=== PATIENT | male | born 1995 | race Caucasian/White ===

== ENCOUNTER 2018-08-21 14:24 | Inpatient (IN) | payer BC ==
[2018-08-21 15:01] LABS: Hemoglobin 14.9 g/dL (14.0-18.0); Mean Corpuscular HGB CONC 32.3 g/dL (32.0-36.0); Mean Corpuscular Hemoglobin 30.4 pg (25.0-35.0); Mean Corpuscular Volume 94.2 fL (78.0-98.0); Mean Platelet Volume 8.3 fL (7.4-10.4); Platelet Count 356 thou/uL (130-400); RBC Distribution Width 11.6 % (11.5-14.5); Red Blood Cell (RBC) Count 4.89 mill/uL (4.00-5.20); White Blood Cell (WBC) Count 37.9 thou/uL (4.8-10.8)
[2018-08-21 15:20] LABS: Band 18 % (5-11); Lymphocytes 9 % (28-48); MDiff Complete? YES; Metamyelocyte 2 % (0-0); Monocytes 7 % (0-4); Myelocyte 1 % (0-0); Neutrophil 62 % (31-61); Platelet Morphology Comment Appears Adequate; RBC Morphology Normal
[2018-08-21 15:23] LABS: ALT (SGPT) 70 U/L (8-55); AST (SGOT) 65 U/L (5-34); Albumin 4.5 g/dL (3.5-5.0); Alkaline Phosphatase 128 U/L (40-150); BUN (Urea Nitrogen) 32 mg/dL (8.9-20.6); Bilirubin, Total 0.9 mg/dL (0.2-1.2); Calc. Creatinine Clearance 0 mL/min (70-130); Calcium 8.8 mg/dL (7.8-10.44); Chloride 97 mmol/L (98-107); Estimated GFR-MDRD 50; Globulin 2.7 g/dL (2.4-3.5); Protein, Total 7.2 g/dL (6.0-8.3); Sodium 130 mmol/L (136-145)
[2018-08-21 15:28] LABS: Bilirubin Negative (Negative); Blood, Urine 2+ (Negative); Clarity Clear (Clear); Glucose, Urine (Dipstick) Greater than 1000 mg/dL (Negative); Leukocyte Negative Leu/uL (Negative); Nitrite Negative (Negative); Protein, Urine (Dipstick) Negative (Neg-Trace); Squamous Epithelial 0-3 HPF (0-3); Urobilinogen Normal mg/dL (Less than 2); WBC/HPF 0-3 HPF (0-3)
[2018-08-21 15:29] LABS: Carbon Dioxide Less than 8 mmol/L (22-29); Glucose 724 mg/dL (70-105); Potassium 7.2 mmol/L (3.5-5.1)
[2018-08-21 15:29] LABS: Base Excess-Venous -21.9 mmol/L (-2.0 to 3.0); CO2 Tension (PvCO2) 24.9 mmHg (40.0-50.0); Calcium, Ionized 1.04 mmol/L (See Comments:); Chloride 104 mmol/L (98-107); Hemoglobin - Calc 15.2 g/dL (14.0-18.0); Potassium 7.1 mmol/L (3.5-5.1); Sodium 127 mmol/L (138-145); T. Carbon Dioxide 7.8 mmol/L (22.0-28.0); vO2 Saturation-calc 80.6 % (60.0-85.0)
[2018-08-21 15:29] LABS: RBC/HPF 0-3 HPF (0-3)
[2018-08-21 15:40] LABS: Bacteria/HPF None Seen HPF (None Seen)
[2018-08-21] MEDS ORDERED: HUMULIN R 100 UNITS in Sodium Chloride 0.9% 100 ML IVPB SCH ×2 (15:45→17:30)
[2018-08-21] MEDS ORDERED: Insulin Regular 300 UNITS/3 ML VIAL ONE (16:31)
[2018-08-21] MEDS ORDERED: Dextrose 5 %-0.45 % NaCl 1,000 ML IV PRN (17:17)
[2018-08-21] MEDS ORDERED: CCU Electrolyte Replacement 1 EACH IVPB ONE (17:17)
[2018-08-21] MEDS ORDERED: NS 0.9% w/ 20 MEQ KCL 1,000 ML IV PRN ×2 (17:17)
[2018-08-21] MEDS ORDERED: Sodium Chloride 0.9% 1,000 ML IV PRN ×4 (17:17)
[2018-08-21] MEDS ORDERED: Calcium Gluconate 4.6 MEQ in Sodium Chloride 0.9% 100 ML IVPB SCH (17:30)
[2018-08-21] MEDS ORDERED: Potassium Phosphate 12 MMOL in Sodium Chloride 0.9% 250 ML 250 ML IV PRN (17:33)
[2018-08-21] MEDS ORDERED: Potassium Chloride 40 MEQ in Premix Bag 1 BAG IVPB PRN (17:33)
[2018-08-21] MEDS ORDERED: CCU ELECTROLYTE REPLACEMENT PROTOCOL FS PRN (17:33)
[2018-08-21] MEDS ORDERED: Potassium Phosphate 9 MMOL in Sodium Chloride 0.9% 100 ML IVPB PRN (17:33)
[2018-08-21] MEDS ORDERED: PHOS-NAK 1 PKT PACK PO PRN ×2 (17:33)
[2018-08-21] MEDS ORDERED: Magnesium Oxide 400 MG TAB PO PRN ×2 (17:33)
[2018-08-21] MEDS ORDERED: Magnesium 2 GM/50 ML 2 GM in Premix Bag 1 BAG IVPB PRN (17:33)
[2018-08-21] MEDS ORDERED: Potassium Chloride 20 MEQ TAB PO PRN (17:33)
[2018-08-21] MEDS ORDERED: Potassium Chloride 40 MEQ in Sodium Chloride 0.9% 250 ML 250 ML IVPB PRN (17:33)
[2018-08-21] MEDS ORDERED: Potassium Phosphate 15 MMOL in Sodium Chloride 0.9% 250 ML 250 ML IV PRN (17:33)
[2018-08-21 18:38] VITALS: BMI 21.9
[2018-08-21] MEDS: Piperacillin/Tazobactam 3.375 GM in Sodium Chloride 0.9% 100 ML IVPB SCH (19:06)
[2018-08-21 20:01] LABS: Anion Gap 21 mmol/L (10-20); BUN (Urea Nitrogen) 27 mg/dL (8.9-20.6); Calc. Creatinine Clearance 87 mL/min (70-130); Calcium 8.6 mg/dL (7.8-10.44); Carbon Dioxide 11 mmol/L (22-29); Chloride 106 mmol/L (98-107); Estimated GFR-MDRD 68; Glucose 311 mg/dL (70-105); Phosphorus 2.7 mg/dL (2.3-4.7); Potassium 4.4 mmol/L (3.5-5.1); Sodium 134 mmol/L (136-145)
[2018-08-21] MEDS: D5 1/2 NS w/20 mEq KCL 1,000 ML IV PRN (21:09)
[2018-08-21 22:13] LABS: Anion Gap 15 mmol/L (10-20); BUN (Urea Nitrogen) 22 mg/dL (8.9-20.6); Calc. Creatinine Clearance 87 mL/min (70-130); Calcium 8.2 mg/dL (7.8-10.44); Carbon Dioxide 14 mmol/L (22-29); Chloride 109 mmol/L (98-107); Estimated GFR-MDRD 68; Glucose 229 mg/dL (70-105); Potassium 4.3 mmol/L (3.5-5.1); Sodium 134 mmol/L (136-145)
[2018-08-22] MEDS: Piperacillin/Tazobactam 3.375 GM in Sodium Chloride 0.9% 100 ML IVPB SCH ×5 (00:11→23:59)
--- NOTE | 2018-08-22 00:24 | HP ---
HISTORY OF PRESENT ILLNESS: The patient was seen by Pam Baez, nurse practitioner. I personally examined the patient, obtained a history and physical and developed a plan. The patient is a 23-year-old male who has a 13-year history of type 1 diabetes, has one prior episode of DKA about 13 years ago. The patient reports that he was in his usual state of health yesterday when he was working hard out in the heat, felt generally poor, but had no specific signs or symptoms of infection. States he started feeling some general nausea late in the afternoon and then woke up at 2 o'clock in the morning with significant nausea and vomiting, and when that persisted, he presented to [facility] ER where lab workup indicated the patient was severely acidotic with DKA. He was given fluids, bicarb, insulin and transferred to this facility. The patient has received additional insulin, started on insulin drip as well as aggressive IV hydration. He is currently able to take a few sips and his nausea is starting to improve and he states that he feels generally better than he did when he initially presented. PHYSICAL EXAMINATION: VITAL SIGNS: Latest vital signs; BP 120/50, pulse 113, respirations 18, temperature is 98.3, O2 saturation was 100% on room air. GENERAL: He is awake, alert, pleasant, cooperative, does not appear significantly distressed at all. HEENT: PERRL. No OP lesions. NECK: Supple and symmetric. HEART: Regular rate and rhythm. LUNGS: Clear. ABDOMEN: Soft, nontender with normal bowel sounds. EXTREMITIES: Have no edema. LABORATORY DATA: White count 37.9, platelets 356. PH 7.059 on VBG, pCO2 is 25, bicarb 7. Sodium 127, potassium 7.1. Latest glucose is greater than 550. Slight elevation of liver enzymes. Urinalysis shows significant ketones. Beta hydroxybutyrate 9.23. IMPRESSION AND PLAN: 1. Diabetic ketoacidosis. The patient is admitted to the [facility]. He was given 0.1 units/kg IV insulin and started on drip, will be on the diabetic ketoacidosis protocol with frequent labs. 2. Severe hyperkalemia. The patient's outside EKG did show some evidence of potential peaked T-waves. He is getting aggressively hydrated. He has had significant amount of insulin, but we will go ahead and give an amp of calcium and stabilize the myocardium and recheck these values soon. 3. Leukocytosis with 18% bands. The patient does not have any evidence of a specific infection; however, we will go and cover with some Zosyn and check blood cultures until we can ensure there is no underlying infection driving this diabetic ketoacidosis. Job ID: [id number]
[2018-08-22] MEDS: D5 1/2 NS w/20 mEq KCL 1,000 ML IV PRN ×2 (01:10→05:17)
[2018-08-22 01:50] LABS: #Basophils 0.1 thou/uL (0.0-0.2); #Eosinphils 0.1 thou/uL (0.0-0.7); #Lymphocytes 2.4 thou/uL (1.20-3.40); %Basophils 0.2 % (0.0-1.0); %Eosinophils 0.2 % (0.0-10.0); %Monocytes 7.6 % (0.0-10.0); Hemoglobin 12.4 g/dL (14.0-18.0); Mean Corpuscular HGB CONC 34.2 g/dL (32.0-36.0); Mean Corpuscular Hemoglobin 31.1 pg (27.0-31.0); Mean Corpuscular Volume 91.1 fL (78.0-98.0); Mean Platelet Volume 7.5 fL (7.4-10.4); Platelet Count 251 thou/uL (130-400); RBC Distribution Width 11.4 % (11.5-14.5); Red Blood Cell (RBC) Count 3.97 mill/uL (4.70-6.10); White Blood Cell (WBC) Count 26.5 thou/uL (4.8-10.8)
[2018-08-22 02:06] LABS: Anion Gap 11 mmol/L (10-20); BUN (Urea Nitrogen) 18 mg/dL (8.9-20.6); Calc. Creatinine Clearance 92 mL/min (70-130); Calcium 8.6 mg/dL (7.8-10.44); Carbon Dioxide 15 mmol/L (22-29); Chloride 111 mmol/L (98-107); Estimated GFR-MDRD 74; Glucose 227 mg/dL (70-105); Sodium 133 mmol/L (136-145)
[2018-08-22 06:23] LABS: Anion Gap 9 mmol/L (10-20); BUN (Urea Nitrogen) 15 mg/dL (8.9-20.6); Calc. Creatinine Clearance 108 mL/min (70-130); Calcium 8.5 mg/dL (7.8-10.44); Carbon Dioxide 20 mmol/L (22-29); Chloride 111 mmol/L (98-107); Estimated GFR-MDRD 88; Glucose 107 mg/dL (70-105); Potassium 4.2 mmol/L (3.5-5.1); Sodium 136 mmol/L (136-145)
[2018-08-22] MEDS ORDERED: Insulin Regular 300 UNITS/3 ML VIAL SC PRN (09:15)
[2018-08-22] MEDS ORDERED: Dextrose 50% Abboject 50 ML SYRINGE SLOW IVP PRN (09:15)
[2018-08-22] MEDS ORDERED: Insulin Glargine 15 UNITS in Pre-Filled Syringe 1 EACH SC SCH ×2 (09:15→21:00)
[2018-08-22] MEDS ORDERED: Dextrose 5% in Water 1,000 ML IV PRN (09:15)
[2018-08-22] MEDS ORDERED: DC Electrolyte Protocol FS ONE (09:30)
[2018-08-22 09:46] LABS: CK (CPK) 1826 U/L (30-200); Magnesium 2.1 mg/dL (1.6-2.6); Phosphorus 2.6 mg/dL (2.3-4.7)
[2018-08-22] MEDS: Sodium Chloride 0.45% 1,000 ML IV SCH ×2 (10:57→17:56)
[2018-08-22] MEDS ORDERED: Diabetic Tussin 200 MG/10 ML UDCUP PO PRN (13:16)
[2018-08-22] MEDS ORDERED: Cepastat Lozenges 1 LOZ PO PRN (13:16)
[2018-08-22] MEDS: Insulin Regular 300 UNITS/3 ML VIAL SC PRN ×2 (14:06→17:42)
[2018-08-22] MEDS ORDERED: Azithromycin 250 MG TAB PO SCH (20:15)
--- NOTE | 2018-08-22 20:17 | PDOC.PN ---
- Subjective Encounter Start Date: 08/22/18 Encounter Start Time: 18:30 Patient seen and examined for DKA. Sore throat +. No CP/SOB. No new complaints. No overnight events - Objective MAR Reviewed: Yes Vital Signs & Weight: Vital Signs (12 hours) Temp 08/22/18 15:03 99.6 F 08/22/18 10:36 98.6 F Weight Weight 152 lb 9.6 oz Most Recent Monitor Data Heart Rate from ECG 84 NIBP 98/49 NIBP BP-Mean 65 Respiration from ECG 23 SpO2 100 I&O: 08/21/18 08/22/18 08/23/18 06:59 06:59 06:59 Intake Total 2959 3116 Output Total 1850 1400 Balance 1109 1716 Result Diagrams: 08/22/18 01:39 08/22/18 05:52 Additional Labs: Accuchecks 08/22/18 08/22/18 08/22/18 16:12 13:58 13:19 POC Glucose 255 H 283 H 256 H 08/22/18 08/22/18 08/22/18 12:08 11:22 09:57 POC Glucose 237 H 235 H 221 H 08/22/18 08/22/18 08/22/18 09:01 08:06 07:20 POC Glucose 185 H 141 H 121 H 08/22/18 08/22/18 08/22/18 06:00 05:10 04:08 POC Glucose 93 120 H 123 H 08/22/18 08/22/18 08/22/18 03:06 02:08 01:08 POC Glucose 160 H 203 H 217 H 08/22/18 08/21/18 08/21/18 00:13 23:09 22:09 POC Glucose 218 H 212 H 224 H 08/21/18 08/21/18 21:10 15:21 POC Glucose 190 H Greater than 550 H* EKG Reviewed by me: Yes (Tele SR) Phys Exam - Physical Examination Constitutional: NAD HEENT: PERRLA, sclera anicteric erythematous tonsils with exudates Respiratory: no wheezing, no rhonchi Cardiovascular: RRR, no rub Gastrointestinal: soft, non-tender, no distention, positive bowel sounds Musculoskeletal: no edema, pulses present Neurological: moves all 4 limbs Dx/Plan - Plan DVT proph w/SCDs IMPRESSION: DKA Sepsis probably due to acute tonsillopharyngitis Metabolic acidosis Hyperkalemia Rhabdomyolysis DM type 1 PLAN: DC Insulin drip Start 1/2 NS @125 Start Lantus to 20 units BID with moderate sliding scale Cont IV Zosyn Add Azithromycin Consult ID to r/o tonsillar abscess AM labs Transfer to medical Review of Systems - Review of Systems ENT: Throat Pain Respiratory: negative: Cough, Dry, Shortness of Breath, Hemoptysis, SOB with Excertion, Pleuritic Pain, Sputum, Wheezing Cardiovascular: negative: chest pain, palpitations, orthopnea, paroxysmal nocturnal dyspnea, edema, light headedness, other Gastrointestinal: negative: Nausea, Vomiting, Abdominal Pain, Diarrhea, Constipation, Melena, Hematochezia, Other - Medications/Allergies Allergies/Adverse Reactions: Allergies Allergy/AdvReac Type Severity Reaction Status Date / Time No Known Allergies Allergy Unverified 08/21/18 15:25 Medications: Current Medications Azithromycin (Zithromax) 500 mg PO ONE SHANNON Stop: 08/22/18 20:16 Azithromycin (Zithromax) 250 mg PO DAILY [facility] Stop: 08/26/18 09:01 Dextrose/Water (Dextrose 50%) 25 gm SLOW IVP PRN PRN PRN Reason: Hypoglycemia Glucagon (Glucagon) 1 mg IM PRN PRN PRN Reason: Hypoglycemia Guaifenesin (Robitussin Sf) 200 mg PO Q4H PRN PRN Reason: Cough Last Admin: 08/22/18 14:05 Dose: 200 mg Piperacillin Sod/Tazobactam (Sod 3.375 gm/ Sodium Chloride) 100 mls @ 200 mls/ hr IVPB Q6HR SHANNON Last Admin: 08/22/18 17:49 Dose: 100 mls Sodium Chloride (1/2 Normal Saline) 1,000 mls @ 125 mls/hr IV .Q8H SHANNON Last Admin: 08/22/18 17:56 Dose: 1,000 mls Dextrose/Water (D5w) 1,000 mls @ 0 mls/hr IV .Q0M PRN PRN Reason: Hypoglycemia Insulin Glargine 20 units/ (Miscellaneous Medication) 0.2 mls @ 0 mls/hr SC BID [facility] Insulin Human Regular (Humulin R) 0 units SC .MODERATE SLIDING SC PRN PRN Reason: Moderate Correctional Scale Last Admin: 08/22/18 17:42 Dose: 6 unit Insulin Human Regular (Humulin R) 0 units SC .BEDTIME SLIDING SC PRN PRN Reason: Bedtime Correctional Scale Throat Lozenges (Cepastat Lozenges) 1 yg PO Q2H PRN PRN Reason: Sore Throat Last Admin: 08/22/18 14:05 Dose: 1 yg
[2018-08-22] MEDS: Insulin Glargine 20 UNITS in Pre-Filled Syringe 1 EACH SC SCH (20:28)
[2018-08-23] MEDS: Sodium Chloride 0.45% 1,000 ML IV SCH (02:37)
[2018-08-23 04:57] LABS: #Eosinphils 0.2 thou/uL (0.0-0.7); #Lymphocytes 3.4 thou/uL (1.20-3.40); #Monocytes 0.9 thou/uL (0.11-0.59); #Neutrophils 8.3 thou/uL (1.40-6.50); %Basophils 0.4 % (0.0-1.0); %Eosinophils 1.7 % (0.0-10.0); %Lymphocytes 26.4 % (21.0-51.0); %Monocytes 6.7 % (0.0-10.0); %Neutrophils 64.8 % (42.0-75.0); Hemoglobin 13.1 g/dL (14.0-18.0); Mean Corpuscular HGB CONC 33.6 g/dL (32.0-36.0); Mean Corpuscular Hemoglobin 31.1 pg (27.0-31.0); Mean Corpuscular Volume 92.7 fL (78.0-98.0); Platelet Count 193 thou/uL (130-400); RBC Distribution Width 11.5 % (11.5-14.5); Red Blood Cell (RBC) Count 4.22 mill/uL (4.70-6.10); White Blood Cell (WBC) Count 12.8 thou/uL (4.8-10.8)
[2018-08-23 05:20] LABS: ALT (SGPT) 48 U/L (8-55); AST (SGOT) 50 U/L (5-34); Albumin 3.2 g/dL (3.5-5.0); Alkaline Phosphatase 77 U/L (40-150); Anion Gap 13 mmol/L (10-20); BUN (Urea Nitrogen) 7 mg/dL (8.9-20.6); Bilirubin, Total 0.9 mg/dL (0.2-1.2); CK (CPK) 1175 U/L (30-200); Calc. Creatinine Clearance 135 mL/min (70-130); Calcium 8.5 mg/dL (7.8-10.44); Carbon Dioxide 19 mmol/L (22-29); Chloride 111 mmol/L (98-107); Estimated GFR-MDRD Greater than 90; Globulin 2.3 g/dL (2.4-3.5); Glucose 75 mg/dL (70-105); Magnesium 1.8 mg/dL (1.6-2.6); Phosphorus 3.6 mg/dL (2.3-4.7); Potassium 3.6 mmol/L (3.5-5.1); Protein, Total 5.5 g/dL (6.0-8.3); Sodium 139 mmol/L (136-145)
[2018-08-23] MEDS: Piperacillin/Tazobactam 3.375 GM in Sodium Chloride 0.9% 100 ML IVPB SCH (05:55)
[2018-08-23] MEDS ORDERED: Azithromycin 250 MG TAB PO SCH (09:00)
[2018-08-23] MEDS: Insulin Glargine 20 UNITS in Pre-Filled Syringe 1 EACH SC SCH (09:16)
[2018-08-23 09:49] VITALS: TEMP 98.1
[2018-08-23] MEDS ORDERED: Insulin Regular 300 UNITS/3 ML VIAL SC PRN (11:17)
[2018-08-23 11:42] VITALS: BP 116/63
--- NOTE | 2018-08-23 15:13 | PQF ---
CLINICAL DOCUMENTATION IMPROVEMENT CLARIFICATION FORM: ICD-10 Updated PLEASE DO AN ADDENDUM TO THE PROGRESS NOTE WITH ANY DOCUMENTATION UPDATES OR ADDITIONS AND CARRY THROUGH TO DC SUMMARY. THANK YOU. DATE: 08/23/18 ATTN: DR. BLAS Please exercise your independent, professional judgment in responding to the clarification form. Clinical indicators are provided on the bottom of this form for your review Diagnosis: "SEPSIS" Present on Admission (POA): [ x ] Yes [ ] No [ ] Unable to determine Coding guidelines require hospitals to identify whether a diagnosis was present on admission (POA) or not. To accurately assign the appropriate POA indicator, this information must be clearly documented within the medical record. CLINICAL INDICATORS - SIGNS / SYMPTOMS / LABS PROGRESS NOTE 08/22: "SEPSIS PROBABLY DUE TO ACUTE TONSILLOPHARYNGITIS" WBC 37.9 BANDS 18 PULSE 121 RISKS: TONSILLOPHARYNGITIS DKA TREATMENT: IV FLUIDS (ER-PRESENT) IV ZOSYN (08/21-PRESENT) ZITHROMAX (08/23-08/26) BLOOD URINE AND THROAT CULTURES (This form is maintained as a part of the permanent medical record) 2014 [employer] All Rights Reserved [email or web address] [email or web address] Office: [phone] [facility]
--- NOTE | 2018-08-23 17:43 | CON ---
DATE OF CONSULTATION: REASON FOR CONSULTATION: DKA with leukocytosis and sore throat. HISTORY OF PRESENT ILLNESS: A 23-year-old, who has a type 1 diabetes mellitus, which was diagnosed when he presented with DKA a few years ago. He is otherwise healthy other than the type 1 diabetes. Takes his insulin 6 to 8 times a day. His dad helps him pay for the medication. He works at [email or web address]. On the day of admission, he had worked in his car and also in his dads yard and had start becoming ill with general malaise and then developed full-blown DKA with nausea and vomiting. He did not have a headache. No visual symptoms, sore throat, odynophagia, or dysphagia. No cough. No chest pain. No abdominal pain. No genitourinary symptoms. No joint symptoms. He was presented to the [facility] ER and was transferred to the hospital and admitted. He was treated for DKA with rapid improvement. He was given broad-spectrum antimicrobial coverage, but no focal infection was identified, except for the symptom of severe odynophagia or posterior pharyngeal pain. Currently that has resolved completely and his 10-point review of systems is negative. PAST MEDICAL HISTORY: Type 1 diabetes with prior DKA and he takes insulin multiple times a day. Used to have a pump, but stopped using it. PAST SURGICAL HISTORY: No surgical history. SOCIAL HISTORY: He apparently smokes intermittently, trying to quit. No alcoholic beverage use. No other drug use. FAMILY HISTORY: Noncontributory. ALLERGIES: NONE. CURRENT MEDICATIONS: 1. Glucagon. 2. Robitussin. 3. Insulin. 4. He had been on azithromycin and Zosyn. PHYSICAL EXAMINATION: VITAL SIGNS: He has been afebrile since the hospital admission except for one episode of 99.6. Other vital signs are normal. O2 saturation on room air is 99. GENERAL: No distress. SKIN: Normal peripheral IV access. No Bhatt catheter. No lymphadenopathy. HEENT: Ocular movements conjugate. Sclerae white. Pupils are equal. Oral cavity normal. Numerous teeth in very good shape. NECK: Supple. No jugular vein distention or carotid bruits. No thyromegaly. LUNGS: Symmetric air entry. No crackles or wheezing. HEART: S1 and S2. Regular rate. No S3 or S4. ABDOMEN: Soft, not distended or tender. No ascites. No bladder distention. No organomegaly. Bowel sounds are present. EXTREMITIES: No joint inflammatory activity. NEUROLOGIC: Moves extremities equally. Cognitive function appears to be intact. LABORATORY DATA: White cell count is 37.9 and down to 12.8, hemoglobin 13, and platelets 193 with normal differential. On arrival, pH was 7.059, the pCO2 of 24, and pO2 of 62. Sodium 139, creatinine 0.85, AST was 50, and ALT 48. The CK was 1175 and on arrival was 2605. IMAGING STUDIES: I will see any imaging studies performed maybe they were done at [facility]. ASSESSMENT: Young man with diabetic ketoacidosis, second episode following heavy exertion associated with rhabdomyolysis or leukocytosis with a left shift. DISCUSSION: The patient's pharyngitis symptoms have resolved and could have been a viral pharyngitis, which might have been associated with precipitation of DKA and then the rhabdomyolysis. He has not been demonstrated to be bacteremic and his group A strep culture from the pharyngeal area was negative. Urine culture was negative. I would advise discontinuation of antimicrobial therapy and discharge planning at this point in time. I do not think that there is evidence to suggest other than a viral infection, a treatable infectious disease in this gentleman. He may have started with a viral pharyngitis in the precipitated hyperglycemia and vicious cycle with development of rhabdomyolysis. Job ID: [id number]
--- NOTE | 2018-08-24 15:16 | DIS ---
DATE OF ADMISSION: 08/21/2018 DATE OF DISCHARGE: 08/23/2018 DISCHARGE DISPOSITION: Home. FOLLOWUP: 1. Follow up with his primary care physician in 1 week. Please note that the patient does not have a primary care physician. He was advised to follow up with [facility]. 2. Follow up with Dr. Blair in 2 weeks. 3. Repeat CK in 1 week is recommended. Primary care physician advised to follow. INPATIENT PARTS SALES MANAGER: Infectious Disease, Dr. Blair. The patient was seen and examined on the day of discharge. Denies any new complaints. No abdominal pain, nausea, vomiting, diarrhea reported. SIGNIFICANT LABORATORY DATA: WBC on admission was 37.9, at discharge 12.8. He also had 18% bandemia on admission, at discharge 0% bandemia. VBG showed pH 7.0 with pCO2 of 24.9, bicarbonate of 7.0. CK on admission was 2605, at discharge 1175. Potassium on admission was 7.1 with blood sugar of 724, bicarbonate less than 8, creatinine 1.73 with BUN 32. His potassium on the day of discharge is 3.6 with creatinine of 0.85. Blood cultures negative. Group A strep culture negative. Urine cultures negative. Ketones were 9.23. BRIEF HOSPITAL COURSE: The patient is a 23-year-old male with diabetes mellitus type 1, presented to the hospital on August 23, 2018 with generalized weakness with nausea and vomiting. He was seen at the outside ER and was transferred to this facility. CK at the outside ER was 3151 with potassium 5.9, bicarbonate of 7, WBC of 37.3, and pH of 7.0. He was started on insulin drip and was monitored in the intermediate care unit. His symptoms gradually improved. Due to significant leukocytosis with 18% bandemia, he was started on IV Zosyn. Later on, azithromycin was added due to sore throat. Strep screen was negative. He was evaluated by Infectious Disease, Dr. Blair, who recommended starting penicillin V 500 mg 3 times daily for next 5 days. He appears stable for discharge. He has been started on long-acting insulin and is tolerating oral diet well. Metabolic acidosis has resolved. His WBC has improved to 12.8 without any left shift. FINAL DIAGNOSES: 1. Diabetic ketoacidosis. 2. Sepsis with acute organ dysfunction secondary to acute tonsillopharyngitis (present on admission). 3. Metabolic acidosis. 4. Significant hyperkalemia, resolved. 5. Rhabdomyolysis. 6. Repeat CK as outpatient is recommended. 7. Diabetes mellitus type 1. 8. Acute kidney injury. 9. Significant leukocytosis secondary to sepsis. 10. Anion gap metabolic acidosis secondary to diabetic ketoacidosis. 11. Slightly abnormal LFTs probably secondary to sepsis. PLAN: Plan was discussed with the patient and the family in detail, they stated understanding. Job ID: [id number]
== END 2018-08-23 14:49 | disposition home or self-care (01) | DRG 871 ==
LOC: ERS 14:24 → EDBD 14:24 → IMCU/EMU 16:08 → 3SE 08-23 09:36
PROVIDERS: ADMIT Internal Medicine; ATTEND Internal Medicine
DX: A41.9 Sepsis, unspecified organism (principal); E10.10 Type 1 diabetes mellitus with ketoacidosis without coma; M62.82 Rhabdomyolysis; N17.9 Acute kidney failure, unspecified; E87.5 Hyperkalemia; J06.0 Acute laryngopharyngitis; R65.20 Severe sepsis without septic shock; F17.290 Nicotine dependence, other tobacco product, uncomplicated
CPT/HCPCS: 36415; 36416; 80048; 80053; 81003; 82010; 82330; 82550; 82803; 83735; 83930; 84100; 84484; 85025; 87040; 87081; 87086; 87430; 93005; 96361; 96365; 96366; J1815; J2543; J3490

== ENCOUNTER 2019-05-19 21:20 | Emergency (ER) | payer BC ==
[2019-05-19] MEDS ORDERED: Ketorolac Tromethamine 30 MG/ML VIAL ONE (21:43)
== END 2019-05-19 22:06 | disposition home or self-care (01) ==
LOC: ERS 21:20
DX: K02.9 Dental caries, unspecified (principal); I10 Essential (primary) hypertension; E10.9 Type 1 diabetes mellitus without complications; F17.290 Nicotine dependence, other tobacco product, uncomplicated
CPT/HCPCS: 96372; 99282; J1885